=== PATIENT | female | born 1990 | race Caucasian/White ===

== ENCOUNTER → 2016-06-05 | Outpatient (CLI) | payer OTHER ==
--- NOTE | 2016-06-06 04:31 | REP ---
Clinical: Anatomical evaluation. Comparison: None . Findings: Examination demonstrates a single live intrauterine in breech presentation. motion is identified by technologist. Placenta is noted anteriorly and grade zero without evidence for placenta previa or abruption. Amniotic fluid volume is normal. Cervix measures 2.7 cm in length and appears closed. No evidence for nuchal cord. Gestational age by LMP 20 weeks 3 days with CON 10/20/2016 . Gestational age by current measurements 20 weeks 3 days with CON 10/20/2016 . FHR equals 133 beats per minute. BPD 4.7 cm 20 weeks 2 days HC 17.9 cm 20 weeks 2 days AC 16.5 cm 21 weeks 4 days FL 3.4 cm 20 weeks 5 days HC/AC ratio 1.08 Estimated weight 395 grams ( 69th percentile). Anatomical assessment demonstrates normal structures including cranium, choroid plexus, cavum, cerebellum/posterior fossa, facial features, lungs, four-chamber heart/ventricular outflow tracts, diaphragm, stomach, cord insertion/three-vessel cord, kidneys/bladder, spine, and extremities. Impression: Single live intrauterine in breech presentation demonstrating appropriate interval growth. Anatomical assessment is complete and normal. Signed by Ehsan Field MD 06/06/2016 04:22 A
== END ==
LOC: M WHC 13:19
PROVIDERS: ATTEND Advanced Practice Midwife
DX: O32.1XX0 Maternal care for breech presentation, not applicable or unspecified (principal); Z3A.20 20 weeks gestation of pregnancy

== ENCOUNTER → 2016-09-26 | Outpatient (REF) | payer OTHER | LOC: M LAB REF 17:03 | PROVIDERS: ATTEND Specialist | DX: Z34.83 Encounter for supervision of other normal pregnancy, third trimester (principal) ==

== ENCOUNTER 2016-10-24 01:49 | Outpatient (CLI) | payer OTHER ==
[~2016-10-24] VITALS: Ht 175.3 cm; Wt 88.0 kg
[2016-10-24 01:57] VITALS: BP 128/84
[2016-10-24] MEDS ORDERED: OXYTOCIN 30 UNITS IN 0.9% NaCl 500ML IV BAG (J2590) As Ordered ONE (05:22)
[2016-10-25] MEDS ORDERED: PRENTAB9 PO (12:37)
== END 2016-10-24 06:35 | disposition home or self-care (01) ==
LOC: M LDO 01:49
PROVIDERS: ATTEND Advanced Practice Midwife
DX: O47.1 False labor at or after 37 completed weeks of gestation (principal); Z3A.40 40 weeks gestation of pregnancy
CPT/HCPCS: 59025; J2590

== ENCOUNTER 2016-10-25 12:12 | Inpatient (IN) | payer OTHER ==
[~2016-10-25] VITALS: Ht 175.3 cm; Wt 92.0 kg
[2016-10-25 12:23] VITALS: BP 129/75
[2016-10-25] MEDS ORDERED: PRENTAB9 PO (12:37)
[2016-10-25] MEDS ORDERED: LR 1,000 ML IV SCH (13:56)
[2016-10-25] MEDS ORDERED: LACTATED RINGER'S 1000 ML IV STA (13:56)
[2016-10-25 14:46] VITALS: BP 122/80
[2016-10-25 15:10] LABS: MEAN CORPUSCULAR HEMOGLOBIN 32.1 pg (27.0-33.0); MEAN CORPUSCULAR HGB CONC 35.4 g/dl (32.0-36.5); MEAN CORPUSCULAR VOLUME 90.8 fl (80.0-96.0); RED CELL DISTRIBUTION WIDTH 13.2 % (11.5-14.5); WHITE BLOOD COUNT 10.8 K/mm3 (4.0-10.0)
[2016-10-25 15:47] VITALS: BP 118/80
[2016-10-25] MEDS ORDERED: FENTANYL 2MCG/ML ROPIVACAINE 0.2% IN 0.9% NACL 200ML IVBAG As Ordered ONE (17:35)
[2016-10-25 18:04] VITALS: BP 105/69
[2016-10-25 18:56] VITALS: BP 99/60
[2016-10-25] MEDS ORDERED: EPIDURAL COMMENT XX SCH (19:15)
[2016-10-25] MEDS ORDERED: EPIDURAL/PCA KEYS XX PRN (19:15)
[2016-10-25] MEDS ORDERED: NALOXONE INJ 0.4 MG/1 ML VIAL (J2310) IV PRN (19:15)
[2016-10-25] MEDS ORDERED: diphenhydrAMINE INJ 50MG/ML VIAL (J1200) IV PRN (19:15)
[2016-10-25] MEDS ORDERED: LACTATED RINGER'S 1000 ML IV PRN (19:15)
[2016-10-25] MEDS ORDERED: ONDANSETRON 4MG/2ML VIAL (J2405) IV PRN (19:15)
[2016-10-25] MEDS ORDERED: OXYTOCIN DRIP 30 UNITS in APPROPRIATE DILUENT 1 EA IV SCH ×2 (19:15→23:29)
[2016-10-25] MEDS ORDERED: REFRIGERATOR IV KEYS XX PRN (19:15)
[2016-10-25] MEDS ORDERED: FENTANYL/ROPIVACAINE/NACL BAG 200 ML EPIDURAL SCH (19:15)
[2016-10-25] MEDS ORDERED: ePHEDrine SULFATE 25 MG/5 ML(5MG/ML) SYRINGE IV PRN (19:15)
[2016-10-25] MEDS ORDERED: DIBUCAINE 1% OINTMENT 30GM TOP PRN (23:30)
[2016-10-25] MEDS ORDERED: DOCUSATE SODIUM 100 MG CAP PO PRN (23:30)
[2016-10-25] MEDS ORDERED: METHYLERGONOVINE MALEATE 0.2 MG TAB PO PRN (23:30)
[2016-10-25] MEDS ORDERED: ACETAMINOPHEN 500 MG TAB PO PRN (23:30)
[2016-10-25] MEDS ORDERED: ANUSOL HC CREAM 30GM TOP PRN (23:30)
[2016-10-25] MEDS ORDERED: RHOGAM 300 MCG (1500 IU) INJ (J2790) IM SCH (23:30)
[2016-10-25] MEDS ORDERED: MEASLES,MUMPS,RUBELLA VACCINE INJ (MMR-II) (90707) SC SCH (23:30)
--- NOTE | 2016-10-26 03:18 | HPE ---
DATE OF ADMISSION: 10/25/2016 Jenny is 26-year-old female 1, para 0 with an estimated date of confinement (EDC) of 10/22/2016, estimated gestational age (EGA) 40-3/7 weeks gestation. A patient of [facility] who presented with contractions every 3-4 minutes. Upon evaluation, she was found to be in early labor. At this point, a decision was made for admission. On admission, no bleeding, no leakage of fluid. Good movement. Her record is reviewed which was essentially unremarkable. LABORATORIES: Blood type is A positive, rubella immune, hepatitis negative, HIV negative, GC, chlamydia negative, 1-hour sugar testing was within normal limits. MEDICAL HISTORY: Denies. PAST SURGICAL HISTORY: The patient had right ankle surgery and tonsillectomy done. SOCIAL HISTORY: She is . Denies any alcohol, drugs or cigarette smoking. REVIEW OF SYSTEMS: Unremarkable. MEDICATIONS: - vitamins ALLERGIES: To PENICILLIN. History is significant for anxiety, depression. PHYSICAL EXAMINATION HEENT: Grossly within normal limits. Abdomen: Soft, nontender, nondistended. Extremities: No clubbing, cyanosis or edema. Vaginal exam: 3 cm, 80% effaced, fetus at -1 station. Tracing reviewed. Category one tracing with contractions every 3-4 minutes. ASSESSMENT: 1. Intrauterine at 40-3/7 weeks gestation. 2. Group B Streptococcus (GBS) negative. PLAN: Admit to labor and delivery. Routine labs sent. Pain management discussed. The patient opts for an epidural. Will continue to monitor. Anticipate delivery.
[2016-10-26 05:28] VITALS: BP 136/67
[2016-10-26] MEDS: IBUPROFEN 800 MG TAB PO PRN ×2 (06:43→14:52)
[2016-10-26] MEDS: PRENATAL VITAMINS CHEWABLE TABLET PO SCH (08:00)
[2016-10-26 09:33] VITALS: BP 126/71
--- NOTE | 2016-10-26 14:12 | DN ---
DATE OF DELIVERY: 10/25/2016 Jenny is a 26-year-old female, 1, para 0, who was admitted at 40-3/7 weeks' gestation in labor. She progressed to fully dilated after artificial rupture of membranes, Pitocin augmentation, and an epidural. She then pushed and delivered a live male in left occiput anterior position with a nuchal cord times one. scores 8 and 9. weight 9 pounds 1 ounce. Placenta delivered spontaneously intact. Three-vessel cord. Perineum, vagina, and cervix inspected. A second-degree midline perineal laceration was noted, which was repaired using 3-0 chromic. Estimated blood loss 300 mL. Both mother and baby in stable condition.
[2016-10-26 18:00] VITALS: BP 129/63
[2016-10-27] MEDS: IBUPROFEN 800 MG TAB PO PRN (01:10)
[2016-10-27 06:09] VITALS: BP 120/75
[2016-10-27] MEDS: PRENATAL VITAMINS CHEWABLE TABLET PO SCH (08:54)
[2016-10-27] MEDS ORDERED: IBUP-1114 PO (11:14)
[2016-10-27] MEDS ORDERED: ACET50TA PO (11:14)
== END 2016-10-27 12:50 | disposition home or self-care (01) | DRG 775 ==
LOC: M LDO 12:12 → M LDI 13:22 → M OBS 10-26 02:26
PROVIDERS: ADMIT Obstetrics & Gynecology; ATTEND Obstetrics & Gynecology
PROC: 10E0XZZ Delivery of Products of Conception, External Approach (ICD-10-PCS; principal; 2016-10-25)
PROC: 0KQM0ZZ Repair Perineum Muscle, Open Approach (ICD-10-PCS; 2016-10-25)
PROC: 10907ZC Drainage of Amniotic Fluid, Therapeutic from Products of Conception, Via Natural or Artificial Opening (ICD-10-PCS; 2016-10-25)
DX: O48.0 Post-term pregnancy (principal); Z37.0 Single live birth; Z3A.40 40 weeks gestation of pregnancy; Z79.899 Other long term (current) drug therapy; Z88.0 Allergy status to penicillin; O69.82X0 Labor and delivery complicated by other cord entanglement, without compression, not applicable or unspecified; O70.1 Second degree perineal laceration during delivery

== ENCOUNTER → 2017-12-14 | Outpatient (REF) | payer OTHER ==
[2017-12-14 21:50] LABS: CHLAMYDIA DNA AMPLIFICATION NEGATIVE (NEGATIVE); GC DNA AMPLIFICATION NEGATIVE (NEGATIVE)
== END ==
LOC: M SFHCLERA 10:24
DX: R10.30 Lower abdominal pain, unspecified (principal)

== ENCOUNTER → 2018-01-28 | Outpatient (REF) | payer OTHER ==
[2018-01-28 18:59] LABS: HEMATOCRIT 40.1 % (36.0-47.0); HEMOGLOBIN 13.4 g/dl (12.0-15.5); MEAN CORPUSCULAR HEMOGLOBIN 30.3 pg (27.0-33.0); MEAN CORPUSCULAR HGB CONC 33.4 g/dl (32.0-36.5); MEAN CORPUSCULAR VOLUME 90.7 fl (80.0-96.0); PLATELET COUNT, AUTOMATED 264 10^3/uL (150-450); RED BLOOD COUNT 4.42 10^6/uL (4.00-5.40); RED CELL DISTRIBUTION WIDTH 11.9 % (11.5-14.5); WHITE BLOOD COUNT 7.8 10^3/uL (4.0-10.0)
[2018-01-28 19:34] LABS: HCG, SERUM QUANTITATIVE 21960 MIU/ML
[2018-01-30 09:56] LABS: RUBELLA IgG QUALITATIVE IMMUNE (IMMUNE)
[2018-01-30 10:14] LABS: HEPATITIS C VIRUS ABY INDEX 0.1 INDEX (<0.8)
[2018-01-30 11:06] LABS: HBsAg Prenatal NEGATIVE (NEGATIVE)
[2018-01-30 12:43] LABS: HIV 1&2 SCREEN CENTAUR NEGATIVE (NEGATIVE)
== END ==
LOC: M LAB REF 16:36
DX: O36.80X0 Pregnancy with inconclusive fetal viability, not applicable or unspecified (principal)

== ENCOUNTER → 2018-02-26 | Outpatient (REF) | payer OTHER ==
[2018-02-26 20:29] LABS: CHLAMYDIA DNA AMPLIFICATION NEGATIVE (NEGATIVE); GC DNA AMPLIFICATION NEGATIVE (NEGATIVE)
== END ==
LOC: M LAB REF 16:37
DX: Z34.81 Encounter for supervision of other normal pregnancy, first trimester (principal)

== ENCOUNTER → 2018-09-03 | Outpatient (REF) | payer OTHER ==
[~2018-09-03] MED LIST: IBUP-1114 PO; MAPA500T2 PO; PRENTAB9 PO
== END ==
LOC: M LAB REF 16:27
PROVIDERS: ATTEND Obstetrics & Gynecology
DX: Z34.83 Encounter for supervision of other normal pregnancy, third trimester (principal)

== ENCOUNTER 2018-09-21 11:25 | Inpatient (IN) | payer OTHER ==
[~2018-09-21] VITALS: Ht 175.3 cm; Wt 93.7 kg
[2018-09-21] VITALS (34 sets, daily range): BP systolic 95–128; BP diastolic 50–73
[2018-09-21] MEDS ORDERED: OXYTOCIN DRIP 30 UNITS in APPROPRIATE DILUENT 1 EA IV SCH ×2 (13:15→21:21)
[2018-09-21 13:18] LABS: HEMOGLOBIN 12.6 g/dl (12.0-15.5); MEAN CORPUSCULAR HEMOGLOBIN 31.7 pg (27.0-33.0); MEAN CORPUSCULAR HGB CONC 34.1 g/dl (32.0-36.5); MEAN CORPUSCULAR VOLUME 93.2 fl (80.0-96.0); PLATELET COUNT, AUTOMATED 152 10^3/uL (150-450); RED BLOOD COUNT 3.97 10^6/uL (4.00-5.40); WHITE BLOOD COUNT 11.1 10^3/uL (4.0-10.0)
[2018-09-21] MEDS: LR 1,000 ML IV SCH ×2 (13:38→20:07)
[2018-09-21] MEDS ORDERED: FENTANYL 2MCG/ML ROPIVACAINE 0.2% IN 0.9% NACL 100ML IVBAG As Ordered ONE (17:29)
[2018-09-21] MEDS ORDERED: EPIDURAL/PCA KEYS XX PRN (18:45)
[2018-09-21] MEDS ORDERED: ePHEDrine SULFATE 25 MG/5 ML(5MG/ML) SYRINGE IV PRN (18:45)
[2018-09-21] MEDS ORDERED: FENTANYL/ROPIVACAINE/NACL BAG 100 ML EPIDURAL SCH (18:45)
[2018-09-21] MEDS ORDERED: ONDANSETRON 4MG/2ML VIAL (J2405) IV PRN (18:45)
[2018-09-21] MEDS ORDERED: diphenhydrAMINE INJ 50MG/ML VIAL (J1200) IV PRN (18:45)
[2018-09-21] MEDS ORDERED: EPIDURAL COMMENT XX SCH (18:45)
[2018-09-21] MEDS ORDERED: NALOXONE INJ 0.4 MG/1 ML VIAL (J2310) IV PRN (18:45)
[2018-09-21] MEDS ORDERED: REFRIGERATOR IV KEYS XX PRN (18:45)
[2018-09-21] MEDS ORDERED: ACETAMINOPHEN TAB 650MG DOSE (2X325MG) PO PRN (21:30)
[2018-09-21] MEDS ORDERED: IBUPROFEN 800 MG TAB PO PRN (21:30)
[2018-09-21] MEDS ORDERED: MEASLES,MUMPS,RUBELLA VACCINE INJ (MMR-II) (90707) SC SCH (21:30)
[2018-09-21] MEDS ORDERED: METHYLERGONOVINE MALEATE 0.2 MG TAB PO PRN (21:30)
[2018-09-21] MEDS ORDERED: ACETAMINOPHEN 500 MG TAB PO PRN (21:30)
[2018-09-21] MEDS ORDERED: DOCUSATE SODIUM 100 MG CAP PO PRN (21:30)
[2018-09-21] MEDS ORDERED: RHOGAM 300 MCG (1500 IU) INJ (J2790) IM SCH (21:30)
[2018-09-21] MEDS ORDERED: DIBUCAINE 1% OINTMENT 30GM TOP PRN (21:30)
[2018-09-21 22:39] LABS: CORD GAS ABE V -4.5; CORD GAS HCO3 V 21.5 MEQ/L; CORD GAS O2 SAT V 72.2 %; CORD GAS PCO2 V 42.8 mmHg; CORD GAS PH V 7.318 UNITS; CORD GAS PO2 V 34.2 mmHg; CORD GAS SBC V 20.2 MEQ/L; CORD GAS TCO2 V 22.8 MEQ/L
--- NOTE | 2018-09-21 22:41 | HPE ---
DATE OF ADMISSION: 09/21/2018 Jenny is a 27-year-old female 2, para 1-0-0-1 with an estimated date of confinement (EDC) of 09/25/2018, estimated gestational age (EGA) 39-3/7 weeks gestation who is being admitted for a social induction. Upon admission, no bleeding, no leakage of fluid. Good movement. Her record reviewed, which was essentially unremarkable. lab: Blood type is A+, rubella immune, hepatitis negative, HIV negative, GC, chlamydia negative, 1-hour sugar testing was within normal limits. Her GBS is negative. PAST MEDICAL HISTORY: Denies. PAST SURGICAL HISTORY: Right ankle surgery and tonsillectomy. SOCIAL HISTORY: She is . Denies any alcohol, drug or cigarette smoking. REVIEW OF SYSTEMS: Unremarkable. FAMILY HISTORY: Significant for pancreatic cancer and breast cancer. MEDICATIONS: vitamin. ALLERGIES: To PENICILLIN. PHYSICAL EXAMINATION: Mildly obese female in no acute distress. Abdomen: Soft, nontender, nondistended. Extremities: No clubbing, cyanosis or edema. Vaginal exam: 1-2 cm dilated, 70% effaced, fetus at -3 station in a vertex position. Tracing reviewed. Category one tracing. ASSESSMENT: Intrauterine at 39-3/7 weeks gestation, being admitted for social induction. PLAN: Admit to labor and delivery, routine labs sent, induction process discussed with the patient, decision made to proceed with Pitocin induction.
[2018-09-21 22:42] LABS: CORD GAS ABE A -6.2; CORD GAS HCO3 A 23.2 MEQ/L; CORD GAS O2 SAT A 29.9 %; CORD GAS PCO2 A 62.9 mmHg; CORD GAS PH A 7.184 UNITS; CORD GAS TCO2 A 25.1 MEQ/L
--- NOTE | 2018-09-21 23:06 | DN ---
DATE OF DELIVERY: 09/21/2018 Jenny is a 27-year-old female, 2, para 1-0-0-1 who was admitted at 39-3/7 weeks gestation for an induction. She underwent Pitocin followed by artificial rupture of membranes. She then progressed to fully dilated after an epidural, pushed and delivered a live female in left occiput anterior position. score 8 and 9. weight 9 pounds 2 ounces. Placenta delivered spontaneously intact. Three-vessel cord. Perineum, vagina and cervix inspected. Second-degree midline perineal laceration was noted, which was repaired using #2-0 chromic. Estimated blood loss: 300 mL. Both mother and baby in stable condition.
[2018-09-22 00:46] VITALS: BP 127/72
[2018-09-22] MEDS: IBUPROFEN 600 MG TAB PO PRN ×2 (05:03→13:35)
[2018-09-22 06:01] VITALS: BP 113/64
[2018-09-22] MEDS: PRENATAL VITAMINS CHEWABLE TABLET PO SCH (07:41)
[2018-09-22 18:00] VITALS: BP 120/59
[2018-09-23 06:00] VITALS: BP 111/70
[2018-09-23] MEDS: PRENATAL VITAMINS CHEWABLE TABLET PO SCH ×2 (08:08→08:09)
== END 2018-09-23 11:05 | disposition home or self-care (01) | DRG 807 ==
LOC: M LDI 11:25 → M OBS 09-22 00:31
PROVIDERS: ADMIT Obstetrics & Gynecology; ATTEND Obstetrics & Gynecology
PROC: 10E0XZZ Delivery of Products of Conception, External Approach (ICD-10-PCS; principal; 2018-09-21)
PROC: 0KQM0ZZ Repair Perineum Muscle, Open Approach (ICD-10-PCS; 2018-09-21)
PROC: 3E033VJ Introduction of Other Hormone into Peripheral Vein, Percutaneous Approach (ICD-10-PCS; 2018-09-21)
PROC: 10907ZC Drainage of Amniotic Fluid, Therapeutic from Products of Conception, Via Natural or Artificial Opening (ICD-10-PCS; 2018-09-21)
DX: O70.1 Second degree perineal laceration during delivery (principal); Z37.0 Single live birth; Z3A.39 39 weeks gestation of pregnancy

== ENCOUNTER → 2019-11-15 | Outpatient (CLI) | payer OTHER ==
--- NOTE | 2019-11-16 00:28 | REP ---
REASON FOR EXAM: Pelvic pain. Transvesical imaging only was obtained. The reason for lack of transvaginal imaging is unknown to me. The lack of transvaginal imaging decreases the sensitivity of the exam. The uterus measures 9.7 x 4.2 x 5.2 cm. The parenchymal echo pattern is within normal limits. Transvesically, the endometrial echo complex appears to be within normal limits with a maximal thickness of 8 mm. The right ovary measures 2.6 x 2.1 x 1.7 cm with an RI of 0.69. Within the right ovary, there is a mixed echo, nearly anechoic 2.4 x 1.3 x 1.7 cm sized structure. This has irregular margins. Left ovary measures 3.1 x 2 x 2.7 cm and is within normal limits with an RI of 0.5. Urinary bladder measures 7 x 9 x 9 cm. IMPRESSION: Probable resolving right ovarian hemorrhagic cyst. This would be better imaged with transvaginal ultrasonography, which was not performed. Consider followup with transvaginal pelvic ultrasonography.
== END ==
LOC: M WHC 12:59
PROVIDERS: ATTEND Obstetrics & Gynecology
DX: R10.2 Pelvic and perineal pain (principal)

== ENCOUNTER → 2020-01-07 | Outpatient (REF) | payer OTHER | LOC: M SFHCWAGY 18:50 | PROVIDERS: ATTEND Nurse Practitioner Women's Health | DX: Z12.4 Encounter for screening for malignant neoplasm of cervix (principal) ==

== ENCOUNTER → 2020-12-27 | Outpatient (REF) | payer OTHER | LOC: M SFHCWAGY 12:56 | PROVIDERS: ATTEND Nurse Practitioner Women's Health | DX: Z12.4 Encounter for screening for malignant neoplasm of cervix (principal) ==

== ENCOUNTER → 2023-02-24 | Outpatient (CLI) | payer OTHER | LOC: M RAD 07:03 | PROVIDERS: ATTEND Surgery | DX: K42.9 Umbilical hernia without obstruction or gangrene (principal) ==

== ENCOUNTER → 2024-02-23 | Outpatient (REF) | payer OTHER | LOC: M LAB REF 17:18 | PROVIDERS: ATTEND Family Medicine | DX: J02.9 Acute pharyngitis, unspecified (principal) ==